=== PATIENT | female | born 1955 | race Caucasian/White ===

== ENCOUNTER 2016-08-10 07:04 | Day surgery (SDC) | payer BC, OTHER ==
[2016-07-31 09:34] VITALS: BMI 45.0
--- NOTE | 2016-07-31 09:57 | PAT Medication Instructions ---
Service Date Jul 31, 2016. Current Home Medication List Aspirin (Aspirin Ec), 81 MG PO QAM Cholecalciferol (Vitamin D3), 1 CAP PO QAM Ferrous Sulfate (Iron), 1 TAB PO QAM Fexofenadine-Pseudoephedrine (Julia-D 24 Hour Allergy), 1 TAB PO QAM Multivitamin (Multivitamin), 1 TAB PO QAM Naproxen (Naprosyn), 500 MG PO BID Paroxetine (Paroxetine HCl), 20 MG PO QAM Triamterene/Hctz (Triamterene/Hctz 37.5-25MG), 1 TAB PO QAM Medication Instructions For Your Scheduled Surgery - Hold the following medications the morning of surgery: Cholecalciferol (Vitamin D3), 1 CAP PO QAM Ferrous Sulfate (Iron), 1 TAB PO QAM Fexofenadine-Pseudoephedrine (Julia-D 24 Hour Allergy), 1 TAB PO QAM Multivitamin (Multivitamin), 1 TAB PO QAM Triamterene/Hctz (Triamterene/Hctz 37.5-25MG), 1 TAB PO QAM Naproxen (Naprosyn), 500 MG PO BID (otherwise okay to continue per surgeon) - Take the following medications the morning of surgery with a sip of water OTHERWISE NOTHING TO EAT OR DRINK AFTER MIDNIGHT: Paroxetine (Paroxetine HCl), 20 MG PO QAM Aspirin (Aspirin Ec), 81 MG PO QAM (okay to continue per surgeon) - Take the following medications as scheduled the night before surgery: Naproxen (Naprosyn), 500 MG PO BID If you have any questions please call us at [phone] or [phone] or [phone]
[2016-07-31 10:44] LABS: BASO % 0.8 %; BASO ABS # 0.08 K/uL (0-0.2); COMPLETE YES; EOS % 1.3 %; HEMATOCRIT 42.1 % (37-47); IG% 0.4 %; LYMPH % 23.2 %; LYMPH ABS # 2.29 K/uL (1.2-3.4); MEAN CELL VOLUME 84.4 fL (80-100); MEAN CORPUSCULAR HEMOGLOBIN 28.3 pg (25-34); MEAN CORPUSCULAR HGB CONC 33.5 g/dl (32-36); MEAN PLATELET VOLUME 9.1 fL (7.4-10.4); MONO % 5.9 %; NEUT % 68.4 %; PLATELET COUNT 343 K/uL (130-400); RED BLOOD COUNT 4.99 M/uL (4.2-5.4); WHITE BLOOD COUNT 9.86 K/uL (4.8-10.8)
--- NOTE | 2016-07-31 10:48 | DIAGNOSTIC IMAGING REPORT ---
TWO VIEW CHEST CLINICAL HISTORY: Preoperative examination. FINDINGS: PA and lateral chest radiographs are obtained. No prior studies are available for comparison at the time of dictation. The examination is degraded by apical lordotic positioning on the PA view. The cardiomediastinal silhouette is unremarkable. The lungs and pleural spaces are clear. There is no pneumothorax. The skeletal structures are osteopenic. Mild degenerative change is noted throughout the thoracic spine. IMPRESSION: No active disease in the chest. Electronically signed by: Jarrell Le M.D. 07/31/2016 10:45 AM Dictated Date/Time: 07/31/2016 10:44 AM
[2016-07-31 10:51] LABS: URINE APPEARANCE CLEAR (CLEAR); URINE BILIRUBIN NEG (NEG); URINE COLOR YELLOW; URINE NITRITE NEG (NEG); URINE SPECIFIC GRAVITY 1.009 (1.000-1.030); UROBILINOGEN NEG (NEG)
[2016-07-31 10:54] LABS: MANUAL MICROSCOPIC REQUIRED? NO; REVIEW REQ? NO
[2016-07-31 11:06] LABS: BUN/CREATININE RATIO 13.1 (10-20); CALCIUM 9.3 mg/dl (8.5-10.1); CREATININE 1.2 mg/dl (0.60-1.20); POTASSIUM 3.2 mmol/L (3.5-5.1)
--- NOTE | 2016-08-09 22:07 | HISTORY & PHYSICAL EXAMINATION ---
DATE OF ADMISSION: 08/10/2016 SUBJECTIVE: CHIEF COMPLAINT: Left knee pain. HISTORY OF PRESENT ILLNESS: This is a patient who has had a history of a medial left knee pain. She was treated conservatively; however, she failed conservative management. She had an MRI, which noted a medial meniscus tear and also chondromalacia patella. There is also a Sarabia cyst noted. She is now being set up for surgical treatment. PAST MEDICAL HISTORY: Diabetes, treated with insulin, hypercholesterolemia, hypothyroidism, hypertension. ALLERGIES: SULFA MEDICATIONS. CURRENT MEDICATIONS: A multivitamin 1 p.o. daily, Tirosint 100 mcg 1 p.o. daily, Zetia 10 mg 1 p.o. daily, prednisone 2.5 mg 1 p.o. daily, pravastatin 20 mg 2 p.o. daily, metformin 1000 mg 1 p.o. b.i.d., losartan/HCTZ 100 mg/12.5 mg 1 p.o. daily, Lantus insulin, no dosage given, used subQ daily and hydroxychloroquine 200 mg 1 p.o. daily. FAMILY HISTORY: Noncontributory. SOCIAL HISTORY: The patient denies alcohol and tobacco use. PAST SURGICAL HISTORY: Hysterectomy, carpal tunnel surgery and right knee surgery. OBJECTIVE: PHYSICAL EXAMINATION: GENERAL: The patient is alert and oriented x3. She is no acute distress. She is a well-dressed, well-nourished 61-year-old female. Her affect is appropriate. CARDIOVASCULAR: Heart has a regular rhythm and rate without murmurs. LUNGS: Clear to auscultation, bilateral. Dorsalis pedis, posterior tib pulse +2/4. Cap refill is less than 2 seconds. LYMPHATIC: No evidence of any swollen lymph nodes. MUSCULOSKELETAL: The patient has an antalgic gait favoring the left lower extremity. Upon inspection of the left lower extremity, the patient is noted to have a mild effusion noted of the left knee. With palpation, she has tenderness at the medial joint space. She has a positive Radha's test with the left knee. There is mild crepitation noted with passive and active range of motion of the left knee. She has a decrease in strength and range of motion of the left knee, secondary to pain. SKIN: There are no scars, rashes or ulcers noted. NEUROLOGIC: Sensation normal and intact distally, left lower extremity. X-RAY EXAM: MRI of the left knee demonstrates a complex tear of the body and posterior horn of the medial meniscus. There is also tricompartmental osteoarthritis, most prominent at the medial compartment. There is a small Sarabia cyst. ASSESSMENT AND DIAGNOSES: 1. Left knee medial meniscus tear. 2. Left knee osteoarthritis. 3. A Sarabia cyst, left knee. PLAN: The above assessment was discussed with the patient. At this time, it was recommended that the patient undergo a left knee arthroscopy with partial medial meniscectomy, chondroplasty of patella, possible chondroplasty of the medial femoral condyle and a possible aspiration of the Sarabia cyst. All potential risks, benefits, complications, alternatives and rehab have been discussed with the patient. At this time, she wishes to proceed with the surgery as indicated. She will be scheduled for the surgery on 08/10/2016.
[~2016-08-10] VITALS: Ht 157.5 cm; Wt 112.9 kg
[~2016-08-10 07:04] MED LIST: ASPI81TA28 PO; CEFAZOLIN 2000 MG/60 ML D5W IV SCH; CHOL2000 PO; FERR1TAB61 PO; FEXO1TAB58 PO; LACTATED RINGER'S 1000ML 1,000 ML IV SCH; MULT-506 PO; NAPR-1169 PO; TRIATAB3 PO; [UNRECOGNIZED DRUG - CODE] PO
[2016-08-10 07:10] VITALS: BP 147/106; PULSE 87; TEMP 36.7; O2SAT 93; Ht 157.5 cm; Wt 112.9 kg
[2016-08-10] MEDS ORDERED: HYDROmorphone INJ 1 MG/ML SYR IV PRN (07:30)
[2016-08-10] MEDS ORDERED: ATROPINE SULFATE 0.1 MG/ML 5ML SYR IV PRN (07:30)
[2016-08-10] MEDS ORDERED: ONDANSETRON INJ 2 MG/ML 2 ML VIAL IV PRN (07:30)
[2016-08-10] MEDS ORDERED: EpHEDrine SULFATE INJ 50 MG/ML AMP IV PRN (07:30)
[2016-08-10] MEDS ORDERED: FENTANYL CITRATE INJ 50 MCG/1 ML 2 ML VIAL IV PRN (07:30)
[2016-08-10] MEDS ORDERED: IBUP-1050 PO (07:40)
--- NOTE | 2016-08-10 07:43 | History & Physical Bridge Note ---
H&P Re-Evaluation Bridge Note: I have examined the patient, reviewed the History & Physical and in the interval since the performance of the History & Physical I have noted the following changes of clinical significance: No changes noted
[2016-08-10] MEDS ORDERED: POTA10CA28 PO (07:56)
[2016-08-10] MEDS ORDERED: FENTANYL CITRATE INJ 50 MCG/1 ML 2 ML VIAL ONE ×2 (08:52→12:16)
[2016-08-10] MEDS ORDERED: MIDAZOLAM HCL 1 MG/ML 2ML VIAL ONE (08:52)
[2016-08-10] MEDS ORDERED: BUPIVACAINE/EPINEPHRINE 0.5% MPF 1:200,000 30 ML VIAL ONE (10:44)
[2016-08-10] MEDS ORDERED: BUPIVACAINE 0.5 % 5 MG/1 ML MPF 30ML VIAL ONE (10:45)
[2016-08-10] MEDS ORDERED: OXYC-57 PO (10:50)
--- NOTE | 2016-08-10 10:52 | Discharge Instructions ---
Discharge Instructions Date of Service Aug 10, 2016. Admission Reason for Admission: Left Knee Medial Meniscus Tear Discharge Discharge Diagnosis / Problem: left knee medial meniscus tear Discharge Goals Goal(s): Decrease discomfort, Improve function Activity Recommendations Activity Limitations: per Instructions/Follow-up section Weightbearing Status: Left weightbearing (as tolerated) . Instructions / Follow-Up Instructions / Follow-Up ACTIVITY RECOMMENDATIONS: * You may walk on the leg with or without crutches as comfort permits. * Bending of the knee should start at once. * Do not shower for 48 hours following surgery. SPECIAL CARE INSTRUCTIONS: * You may cleanse the skin adjacent to the small wounds with soap and water at the time of the first dressing change. * The application of an ice bag to the front and sides of the knee will decrease swelling and discomfort for the first 48 hours. * The small incisions may be sore and develop bruising. This bruising does not require any special care. SPECIAL PRECAUTIONS: * If you experience unusual pain unrelieved by prescriptions, temperature elevation (100 degrees F. or above) or progressive swelling or bleeding, you should contact our office at for further evaluation. * You may have been prescribed pain medication. If you experience nausea and/or fine skin rash, discontinue this medication and contact our office at for an alternate medication. DRESSING: * Dressing should be comfortable and absorb any leakage of fluid and/or blood. * The dressing may become moist or bloodstained. * Dressing may be removed 3 days after surgery and bandaids placed over the small surgical incisions. If can be removed sooner if it becomes very soiled or loose. * Bandaids may be used over next several days as needed and can be discontinued when there is not further drainage from the wounds. FOLLOW UP VISIT: If appointment is not already scheduled: Please call [facility] to make a follow-up appointment for 2 weeks after your surgery at . Current Hospital Diet Patient's current hospital diet: Discharge Diet Recommended Diet: Regular Diet Pending Studies Studies pending at discharge: no Medical Emergencies . Who to Call and When: Medical Emergencies: If at any time you feel your situation is an emergency, please call 911 immediately. . Non-Emergent Contact Non-Emergency issues call your: Surgeon Call Non-Emergent contact if: temperature is above 101, your pain is not controlled, your pain is worsening, wound has increased drainage, wound has increased redness, wound has increased pain . "Provider Documentation" section prepared by Ranjeet Farias. . VTE Core Measure Inpt VTE Proph given/why not?: Treatment not indicated
[2016-08-10] MEDS ORDERED: LABETALOL HCL IV 5 MG/ML 20ML IV ONE (11:18)
[2016-08-10] MEDS ORDERED: LIDOCAINE HCL 2% 2 ML VIAL (20MG/ML) ONE (11:18)
[2016-08-10] MEDS ORDERED: PROPOFOL IV EMULSION 10 MG/ML 20 ML VIAL IV ONE (11:18)
[2016-08-10] MEDS ORDERED: ROCURONIUM BROMIDE 10 MG/ML 5 ML VIAL ONE (11:18)
[2016-08-10] MEDS ORDERED: DEXAMETHASONE SOD INJ 4 MG/ML VIAL ONE (11:18)
[2016-08-10] MEDS ORDERED: ONDANSETRON INJ 2 MG/ML 2 ML VIAL ONE (11:18)
[2016-08-10] MEDS ORDERED: BUPIVACAINE/EPINEPHRINE 0.25% 1:200,000 30 ML VIAL ONE (11:40)
[2016-08-10] MEDS ORDERED: NEOSTIGMINE METHYLSULFATE 5 MG/5 ML SYR ONE (12:28)
[2016-08-10] MEDS ORDERED: GLYCOPYRROLATE INJ 0.2 MG/ML VIAL ONE (12:28)
[2016-08-10] MEDS ORDERED: PHENYLEPHRINE 100MCG/ML 5ML SYR ONE (12:29)
--- NOTE | 2016-08-10 13:01 | [facility] Post Operative Brief Note ---
Immediate Operative Summary Operative Date Aug 10, 2016. Pre-Operative Diagnosis Left knee medial meniscus tear; Chondromalacia Medial Femoral Condyle; Chondromalacia Patella; Left knee osteoarthritis; Sarabia cyst, left knee Post-Operative Diagnosis Left knee medial meniscus tear;Chondromalacia Medial Femoral Condyle gr3; Chondromalacia Patella gr2-3; Chondromalacia Femoral Trochlea gr3; Loose Body [id number]; Symptomatic Medial Synovial Plica; Synovitis; Left knee osteoarthritis; Sarabia cyst, left knee Procedure(s) Performed Left Knee Arthroscopy with Partial Medial Menisectomy; Abrasion Chondroplasty of Femoral Trochlea, Abrasion Chondroplasty Medial Femoral Condyle; Chondroplasty Patella; Resection Medial Synovial Plica; Aspiration Sarabia's Cyst; Removal of Loose Body [id number]; Synovectomy Surgeon Dr. Cleveland Lighthouse Keeper Surgeon(s) none Estimated Blood Loss 1ML Findings See Dict Specimens none per surgeon Drains NONE Anesthesia GLMA W/ LOCAL Complication(s) None Disposition Recovery Room / PACU
--- NOTE | 2016-08-10 13:05 | Anesthesiology Progress Note ---
Anesthesia Post Op Note Date & Time Aug 10, 2016 at 13:04 Vital Signs Pain Intensity: 0 Vital Signs Past 12 Hours Date Time Temp Pulse Resp B/P Pulse Ox O2 Delivery O2 Flow Rate FiO2 08/10/16 13:02 72 17 08/10/16 13:02 72 17 92 08/10/16 13:00 149/81 08/10/16 12:57 62 17 97 08/10/16 12:57 63 17 08/10/16 12:55 146/68 08/10/16 12:52 63 21 08/10/16 12:52 63 21 97 08/10/16 12:51 65 16 08/10/16 12:51 65 16 96 08/10/16 12:50 154/75 08/10/16 12:46 69 19 08/10/16 12:46 70 19 149/75 96 08/10/16 12:42 168/69 08/10/16 12:41 71 19 97 08/10/16 12:41 36.9 69 16 168/69 98 Mask 10 08/10/16 12:41 71 19 08/10/16 07:10 36.7 87 20 147/106 93 Room Air Notes Mental Status: alert / awake / arousable, participated in evaluation Pt Amnestic to Procedure: Yes Nausea / Vomiting: adequately controlled Pain: adequately controlled Airway Patency, RR, SpO2: stable & adequate BP & HR: stable & adequate Hydration State: stable & adequate Anesthetic Complications: no major complications apparent
[2016-08-10 13:30] VITALS: BP 148/68; PULSE 72; TEMP 36.8; O2SAT 94
[2016-08-10 14:00] VITALS: BP 117/77; PULSE 73; O2SAT 97
[2016-08-10 14:29] VITALS: BP 144/79; PULSE 79; TEMP 36.6; O2SAT 97
--- NOTE | 2016-08-10 15:24 | OPERATIVE REPORT ---
DATE OF OPERATION: 08/10/2016 PREOPERATIVE DIAGNOSES: 1. Left knee medial meniscus tear. 2. Chondromalacia of the medial femoral condyle. 3. Chondromalacia patellae. 4. Osteoarthritis. 5. Sarabia's cyst left knee. POSTOPERATIVE DIAGNOSES: 1. Left knee medial meniscus tear. 2. Chondromalacia medial femoral condyle, grade 3. 3. Chondromalacia patellae, grade 2-3. 4. Chondromalacia femoral trochlea, grade 3. 5. Loose body 8 x 9 x 7 mm. 6. Symptomatic medial synovial plica. 7. Synovitis. 8. Sarabia's cyst, left knee. 9. Osteoarthritis. PROCEDURES: 1. Left knee arthroscopy with partial medial meniscectomy. 2. Abrasion chondroplasty to bleeding bone of the femoral trochlea. 3. Abrasion chondroplasty to bleeding bone of the medial femoral condyle. 4. Chondroplasty of the patella. 5. Resection of medial synovial plica. 6. Removal of loose body 8 x 9 x 7 mm. 7. Synovectomy. 8. Aspiration Sarabia's cyst. SURGEON: Dr. Cleveland. DIATHERMY EQUIPMENT REPAIRER: None. ANESTHESIA: General LMA with local. SPECIMENS: None. DRAINS: None. COMPLICATIONS: None. BLOOD LOSS: 1 mL. PERTINENT HISTORY: This is a 61-year-old female with chronic progressive ongoing medial sided left knee pain. She was treated conservatively. She had use of a brace, anti-inflammatories, rest, ice, observation and failed all measures. She had a slight twisting injury which exacerbated her condition and then she eventually had an MRI which noted medial meniscus tear, chondromalacia patellae, chondromalacia of the medial femoral condyle and a Sarabia's cyst. She was then scheduled for surgery as indicated. All potential risks, benefits, complications, alternatives, rehab, potential for incomplete relief of symptoms, need for further surgery, DVT, PE, , persistent pain, swelling, scarring, weakness, neurovascular injury, wound complications were discussed with the patient. The patient decided to proceed with the procedure as indicated. DESCRIPTION OF PROCEDURE: The patient was taken to the operative suite, placed supine on the operating room table. I reviewed consent and identification of proper operative site, patient anesthetized, LMA was placed. Tourniquet was placed high on the left thigh over cast padding. Left lower extremity was then sterilely prepped and draped in usual fashion, elevated, exsanguinated with an Esmarch bandage, tourniquet inflated to 350 mmHg. Next, an 11 blade scalpel was used to make an incision in the inferior lateral aspect of the knee joint, followed by placement of blunt trocar and sleeve, camera and inflow. Next, a superior medial portal was established using 11-blade scalpel incision followed by blunt trocar and sleeve and outflow. Next, sequential diagnostic arthroscopy commenced in the suprapatellar pouch noting significant synovitis. Also noted was chondromalacia grade 3 of the femoral trochlea and chondromalacia grade 2-3 of the patella. Also noted was a symptomatic medial synovial plica with fibrillation and fraying of the medial bands. Next, the medial gutter was inspected and noted to have some moderate synovitis. No loose bodies. Next, the medial joint space was inspected. There was noted to be a tear of the body of the medial meniscus extending into the posterior horn. Also noted was grade 3 chondromalacia of the medial femoral condyle. Also noted was a loose body measuring 8 x 9 x 7 mm. Next, 18 gauge spinal needle was inserted to localize the medial portal followed by 11-blade scalpel incision, followed by placement of a 4.5 mm sucker shaver. At this point, the loose body was then resected measuring 8 x 9 x 7 mm. Next, an abrasion chondroplasty to bleeding bone was performed of the medial femoral condyle with the 4.5 mm sucker shaver. Next, the basket meniscal biter was then used to resect the damaged portion of the medial meniscus followed by removal of the fragments with the 4.5 mm sucker shaver. Next, a 4.5 mm sucker shaver was then used to smooth and contour the remainder of the meniscus as appropriate. Next, attention was then directed toward the medial plica. The symptomatic medial plica was then resected using a 4.5 mm sucker shaver. Next synovitis in the medial gutter was also resected using a sucker shaver. Next, the ACL and PCL were inspected and noted to be intact, small blunt tipped probe was inserted, they were probed and noted to be stable. Next, the lateral compartment was inspected, the femoral condyle, lateral tibial plateau and the meniscus were all noted to be intact without any evidence of significant pathology. Next, the lateral gutter was inspected and noted to have a moderate amount of synovitis. At this point, a 4.5 mm sucker shaver was used to perform a synovectomy in the lateral gutter. Next, the suprapatellar pouch then inspected and noted to have significant synovitis and a 4.5 mm sucker shaver was then used to perform synovectomy. At this point, an abrasion chondroplasty to bleeding bone was performed of the grade 3 chondromalacia of the femoral trochlea. Next, chondroplasty of the patella was also performed, smoothed and contoured the small frayed and fibrillated regions of the patella as appropriate. This was performed with a 4.5 mm sucker shaver. Next, all particulate debris was then flushed from the joint. The arthroscope and cannula was removed from the joint after all excess fluid was expressed from the joint. Next, the portal sites were closed using interrupted 4-0 nylon sutures and then the joint was then injected with 30 mL of 0.25% Marcaine with epinephrine. Next, the limb was elevated and then using an 18 gauge spinal needle and a 60 mL syringe, approximately 12 mL of synovial fluid was aspirated from the Sarabia cyst in the popliteal fossa of the left knee adjacent to the gastrocnemius fascia. Next, a sterile compressive dressing consisting of Xeroform gauze, sterile 4 x 4s, ABD pads x2 and Webril was applied to the left knee, followed by application of a 6 inch Gildardo wrap. The tourniquet was released. The patient was awakened and taken to recovery in stable condition. I attest to the content of the Intraoperative Record and any orders documented therein. Any exceptio ns are noted below.
== END 2016-08-10 14:50 | disposition home or self-care (01) ==
LOC: C.ACU 07:04
PROVIDERS: ATTEND Orthopaedic Surgery Sports Medicine
DX: S83.242A Other tear of medial meniscus, current injury, left knee, initial encounter (principal); M94.262 Chondromalacia, left knee; M22.42 Chondromalacia patellae, left knee; M67.52 Plica syndrome, left knee; M65.9 Synovitis and tenosynovitis, unspecified; M71.22 Synovial cyst of popliteal space [Baker], left knee; M17.12 Unilateral primary osteoarthritis, left knee; I10 Essential (primary) hypertension; E11.9 Type 2 diabetes mellitus without complications; E78.00 Pure hypercholesterolemia, unspecified; E03.9 Hypothyroidism, unspecified; Z79.4 Long term (current) use of insulin; Z79.899 Other long term (current) drug therapy; X58.XXXA Exposure to other specified factors, initial encounter